=== PATIENT | female | born 1960 ===

== ENCOUNTER → 2025-07-08 11:13 | Outpatient (CLI) | payer MEDICARE, SELFPAY ==
--- NOTE | 2025-07-08 11:22 | DI.RAD.S_ITS ---
PROCEDURE: XR HIP W PEL IF DONE LT 2V INDICATIONS: Evaluate for osteoarthritis TECHNIQUE: AP pelvis with lateral view(s) of the left hip(s). COMPARISON: None. FINDINGS: Bones: No fractures or dislocations. Zrzo-iz-iecuioay bilateral hip joint osteoarthritic changes are seen slightly worse on the left side. No evidence of avascular necrosis of femoral head. Pelvic ring appears intact. No suspicious bony lesions. Soft tissues: The visualized bowel gas pattern is normal. Calcified uterine fibroid is seen in right lower pelvis. IMPRESSION: No acute left hip fracture or dislocation. Left worse than right bilateral hip joint osteoarthritis. No evidence of avascular necrosis. Dictated by: Yo Roque M.D. on 07/08/2025 at 12:05 Approved by: Yo Roque M.D. on 07/08/2025 at 12:06
== END ==
LOC: RAD 11:20
PROVIDERS: Referring Provider Chiropractor; Visit Provider Chiropractor
DX: M16.0 Bilateral primary osteoarthritis of hip (principal); M25.552 Pain in left hip; G89.29 Other chronic pain
CPT/HCPCS: 73502

== ENCOUNTER 2025-07-15 11:24 | Emergency (ER) | payer SELFPAY ==
[2025-07-15 11:35] VITALS: BP 172/91; PULSE 91; RESP 18; TEMP 36.9; O2SAT 99; BMI 26.4
--- NOTE | 2025-07-15 11:52 | ED_ITS ---
<Statement entered by Juancho Shay MD - 07/15/25 17:50> I was in the department and available for consultation at the time the patient was seen HPI - Extremity Problem General Chief complaint: Extremity Problem,Nontraumatic Stated complaint: Right hip pain x 7 days Time Seen by Provider: 07/15/25 11:52 Source: patient Mode of arrival: Ambulatory History of Present Illness HPI Narrative: Ms. Yi is a pleasant 65-year-old female with a past medical history of HTN, [id number] type 2 diabetes who presents to the emergency department for right hip pain x2 days, with radiation down the thigh and worse with walking. She is here with her daughter who contributes to the history. Of note patient had a walk-in clinic visit 1 week ago, 07/08/2025, for chronic left hip pain and had an x-ray at that time revealing left worse than right bilateral hip joint osteoarthritis, no evidence of avascular necrosis. Patient had a referral placed Orthopedics at that time. Patient has been taking Tylenol and the left hip pain has actually improved significantly but now her right hip is starting to hurt. Pain is described on the anterior lateral right hip overlying the region of the femoral head. She walks independently without use of a walker or cane but she is now limping because of the pain in the right hip. She denies any falls or trauma. Denies any abdominal pain, nausea, vomiting, diarrhea, constipation, hematuria, dysuria, fevers, chills, chest pain, shortness of breath, lower leg numbness tingling or weakness. Denies back pain. She has not yet been able to follow up with PCP or Orthopedics. Related Data Home Medications ?Medication ?Instructions ?Recorded ?Confirmed diclofenac sodium PO 07/08/25 07/08/25 glyburide PO 07/08/25 07/08/25 losartan potassium .Route 07/08/25 Previous Rx's ?Medication ?Instructions ?Recorded hydrocodone 2.5 mg-acetaminophen 1 tab PO Q4-6H PRN pa in #10 tabs 07/15/25 325 mg tablet Allergies Allergy/AdvReac Type Severity Reaction Status Date / Time No Known Drug Allergies Allergy Unverified 07/08/25 10:50 Review of Systems Review of Systems ROS Unobtainable: All systems reviewed & are unremarkable except as noted in HPI and below Patient History Social History Smoking Status: Never smoker Smoking Status: Never smoker Exam Narrative Exam Narrative: GENERAL: 65 year old AA patient appears stated age. Well-developed patient, in no acute distress. HEAD: Atraumatic. Normocephalic. EYES: No scleral icterus. No injection or drainage. ENT: Nose without bleeding, purulent drainage. NECK: Trachea midline. Cervical ROM intact. CARDIOVASCULAR: Regular rate and rhythm. RESPIRATORY: ?Nonlabored respirations. ?Speaking in clear, full sentences. ?Clear to auscultation. GASTROINTESTINAL: Abdomen soft, non-tender, nondistended. Bs present. EXTREMITIES: No LE edema. 2+ BL DP & PT pulses, brisk cap refill on toes, legs warm and well perfused. 5/5 bilateral plantar and dorsiflexion strength, knee flexion-extension strength. Patient reports some tenderness to palpation of the right greater trochanter region and pain with extension and external rotation of the right hip. She is able to stand and ambulate independently but does have a an antalgic gait secondary to right hip pain. BACK: No midline spinal tenderness, SI joint tenderness or paraspinal lumbar tenderness. NEURO: AOx3. ?Clear speech. ?Moves all 4 extremities appropriately. SKIN: No rash or erythema of visible areas Initial Vital Signs Initial Vital Signs: Vital Signs Temperature 98.4 F 07/15/25 11:35 Pulse Rate 91 H 07/15/25 11:35 Respiratory Rate 18 07/15/25 11:35 Blood Pressure 172/91 H 07/15/25 11:35 Pulse Oximetry 99 07/15/25 11:35 Oxygen Delivery Method Room Air 07/15/25 11:35 Course Orders Ordered: Discontinued Medications Ketorolac Tromethamine (Ketorolac 30 Mg/Ml Vial) 15 mg IM NOW ONE Stop: 07/15/25 12:23 Last Admin: 07/15/25 12:38 Dose: 15 mg Documented By: RODGER Vital Signs Vital signs: Vital Signs - 8 hr 07/15/25 11:35 Temperature 98.4 F Pulse Rate 91 H Respiratory Rate 18 Blood Pressure 172/91 H Pulse Oximetry 99 Oxygen Delivery Method Room Air MDM - Extremity (Nontraumatic) Medical Records Attestation: I reviewed the patient's medical records. MDM Narrative Medical decision making narrative: 65-year-old female with a past medical history of HTN, [id number] type 2 diabetes who presents to the emergency department for right hip pain x2 days, with radiation down the thigh and worse with walking. Differential diagnosis includes is not limited to osteoarthritis, lumbar radiculopathy, fracture, etc. On exam patient is in no acute distress, nontoxic appearing, vital signs appropriate with the exception of mildly elevated blood pressure. Her lower extremities are neurovascularly intact with strong palpable pulses, brisk capillary refill, no signs of infection, good strength and sensation. Patient is experiencing nontraumatic right hip pain over the last 2 days, has a longstanding history of left hip pain and had an x-ray performed 1 week ago which revealed bilateral osteoarthritis in addition to a calcified uterine fibroid. Patient has not had any falls or injuries since this x-ray. She denies any abdominal pain or pelvic pain and is aware of history of uterine fibroids. She has been taking Tylenol without resolution of her hip pain. After shared decision-making with the patient and her daughter, we agreed to not repeat x-rays today given her recent x-ray which did involve a view of the right hip. She already had a referral placed Orthopedics but I recommended calling them for a follow up appointment. We also discussed using a walker to help steady her gait, gentle stretching exercises, heat therapy, appropriate use of ibuprofen and acetaminophen, in addition to a short prescription of low-dose hydrocodone if needed for severe breakthrough pain. Discussed risks of narcotics. We will treat with 1 time dose of Toradol in the ED for pain at this time. Patient and her daughter verbalized understanding of all information and are happy with the plan. Patient ambulates independently all questions answered, she is ambulatory and stable for discharge home. Discharge Plan Departure Patient Disposition: Home Clinical Impression: Acute pain of right hip Osteoarthritis, hip, bilateral Qualifiers: Osteoarthritis type: unspecified Qualified Code(s): M16.0 - Bilateral primary osteoarthritis of hip Instructions: DI for Hip Pain Activity Restrictions/Additional Instructions: Dear Ms. Yi, Thank you for coming to the emergency department. Today you were evaluated for right hip pain. We discussed her x-ray from 07/08/2025 which revealed osteoarthritis of both hips. I suspect that your right hip pain is due to this osteoarthritis and also because you happen compensating and overusing the right leg. I would like you to start using a walker to help stabilize your gait until you can follow up with a physical therapist for strengthening exercises, these can be purchased at [employer]. Please rest, perform gentle movement, use heat therapy to help with the pain of the hip, and take [id number]-[id number]-mqktwhi ibuprofen (Motrin/Advil) and acetaminophen (Tylenol). Do not take ibuprofen until at least 8:30 p.m. this evening because you received ketorolac in the emergency department. Please call to schedule a follow-up appointment with [facility]. As we discussed, also prescribed you a short course of hydrocodone-acetaminophen which is an opiate pain medication. You can take 1 or 2 of these pills every 4- 6 hours as needed. Please be aware that this medication has many risks and should only be used for severe breakthrough pain. You have been prescribed a short course of narcotic medications. These are potentially dangerous and addictive medications that should be used carefully. While on these medications you cannot drive or operate heavy machinery. Additionally, you cannot sign legal documents or perform any duties such as this. Many people get constipated on narcotic medications so it would be advisable to discuss stool softeners with the pharmacist when you pick up attendant your prescription. Please understand that we cannot provide further refills of narcotics or controlled substances through the ED and your pain management will need to be through your Primary Care Provider Please follow up with your primary care doctor within the next 2-3 days for ER follow-up. (If you do not have a PCP you can call [phone]. ?to schedule an appointment with an [facility] Primary Care Provider) IF YOU DEVELOP ANY NEW OR WORSENING SYMPTOMS, RETURN TO THE ER! Please read the attached instructions, they highlight more specific treatments and interventions for you at home. Thank you for letting me participate in your care, Kim Cerda PA-C Prescriptions: New hydrocodone-acetaminophen 2.5-325 mg tablet 1 tab PO Q4-6H PRN (Reason: pain) Qty: 10 0RF No Action diclofenac sodium PO Rx Instructions: 75 mg glyburide PO Rx Instructions: 5 mg tabs losartan potassium .Route Rx Instructions: 25 mg Referrals: Iris Rahman DO [Physician, Orthopedic Surgery] Referral Note: bilateral hip osteoarthritis Stand Alone Forms: Patient Portal/API
[2025-07-15] MEDS: KETOROLAC 30 MG/ML VIAL 15 MG IM (12:38)
== END 2025-07-15 12:42 | disposition home or self-care (01) ==
PROVIDERS: Emergency Provider Physician Assistant
DX: M16.0 Bilateral primary osteoarthritis of hip (principal); M25.551 Pain in right hip
CPT/HCPCS: 96372; 99283; J1885